=== PATIENT | female | born 1995 | race Caucasian/White ===

== ENCOUNTER 2022-02-23 08:10 | Emergency (ER) | payer BC ==
[2022-02-23] VITALS (10 sets, daily range): BP systolic 91–113; BP diastolic 45–74
[~2022-02-23] VITALS: Ht 167.6 cm; Wt 77.2 kg
[2022-02-23 08:33] LABS: HEMATOCRIT 43.1 % (37.0-47.0); HEMOGLOBIN 14.1 g/dl (12.0-16.0); IMMATURE GRANULOCYTES 0.3 % (0.0-5.0); MEAN CELL VOLUME 85.7 fL CALC (80.0-100.0); MEAN CORPUSCULAR HGB CONC 32.7 g/dL CAL (32.0-36.0); NEUT# 4.07 thou/uL (2.00-7.15); RED BLOOD COUNT 5.03 mill/uL (4.20-5.60); RED CELL DISTRI WIDTH 13.2 % (11.5-15.5)
[2022-02-23 08:35] LABS: URINE BILIRUBIN - DIPSTICK NEGATIVE (NEGATIVE); URINE BLOOD DIPSTICK TRACE-INTACT (NEGATIVE); URINE COLOR YELLOW; URINE GLUCOSE - DIPSTICK NEGATIVE (NEGATIVE); URINE KETONE NEGATIVE (NEGATIVE); URINE LEUK ESTERASE NEGATIVE (NEGATIVE); URINE PROTEIN - DIPSTICK NEGATIVE (NEG-TRACE); URINE SPECIFIC GRAVITY <=1.005; URINE UROBILINOGEN - DIPSTICK 0.2 E.U./dL (0.2)
[2022-02-23 08:49] LABS: URINE NITRITE - DIPSTICK NEGATIVE (Negative)
[2022-02-23 09:01] LABS: ALBUMIN 4.1 g/dL (3.2-5.0); ALKALINE PHOSPHATASE 51 u/l (38-126); ANION GAP 10 (6-22 (CALC)); BILIRUBIN, TOTAL 0.3 mg/dL (0.0-1.4); BUN 13 mg/dL (7-17); BUN/CREATININE RATIO 17 (12-20 (CALC)); CARBON DIOXIDE 28 mmol/l (22-30); CHLORIDE 106 mmol/l (95-108); CREATININE 0.8 mg/dL (0.5-1.0); GFR FOR AFR.AMER. > 60 ML/MIN (>=60 (CALC)); GFR OTHER RACES > 60 ML/MIN (>=60 (CALC)); LIPASE 121 u/l (23-300); POTASSIUM 4.1 mmol/l (3.5-5.1); SGOT/AST 19 u/l (14-36); SODIUM 139 mmol/l (137-146); TOTAL PROTEIN 7.3 g/dL (6.3-8.2)
[2022-02-23] MEDS ORDERED: MEDDOSEPAK PO (11:11)
[2022-02-23] MEDS ORDERED: ZOFRAN4 MG/TAB PO (11:11)
[2022-02-23] MEDS ORDERED: TORADOL PO (11:11)
== END 2022-02-23 12:35 | disposition home or self-care (01) | DRG 392 ==
LOC: ED 08:10
PROVIDERS: Family Medicine
DX: R10.84 Generalized abdominal pain (principal); Z87.19 Personal history of other diseases of the digestive system
CPT/HCPCS: Q9967

== ENCOUNTER 2023-01-01 09:54 | Emergency (ER) | payer BC ==
[~2023-01-01] VITALS: Ht 167.6 cm; Wt 88.4 kg
[~2023-01-01 09:54] MED LIST: MEDDOSEPAK PO; TORADOL PO; ZOFRAN4 MG/TAB PO
[2023-01-01 10:01] VITALS: BP 115/76
[2023-01-01 10:06] VITALS: BP 105/56
[2023-01-01 10:18] LABS: BASO% 0.4 % (0-3); EOS% 1.9 % (0-8); HEMATOCRIT 38.8 % (37.0-47.0); HEMOGLOBIN 12.8 g/dl (12.0-16.0); IMMATURE GRANULOCYTES 0.5 % (0.0-5.0); LYMPH% 24.3 % (15-41); MEAN CELL VOLUME 82.9 fL CALC (80.0-100.0); MEAN CORPUSCULAR HGB 27.4 pG CALC (26.0-32.0); MONO% 8.9 % (2-13); NEUT# 5.42 thou/uL (2.00-7.15); RED BLOOD COUNT 4.68 mill/uL (4.20-5.60); RED CELL DISTRI WIDTH 14.1 % (11.5-15.5)
[2023-01-01 10:28] LABS: ANION GAP 12 (6-22 (CALC)); BUN 10 mg/dL (7-17); BUN/CREATININE RATIO 12 (12-20 (CALC)); CARBON DIOXIDE 20 mmol/l (22-30); CHLORIDE 109 mmol/l (95-108); CREATININE 0.8 mg/dL (0.5-1.0); GFR FOR AFR.AMER. > 60 ML/MIN (>=60 (CALC)); GFR OTHER RACES > 60 ML/MIN (>=60 (CALC)); POTASSIUM 4.1 mmol/l (3.5-5.1); SODIUM 137 mmol/l (137-146)
[2023-01-01 11:11] VITALS: BP 107/67
[2023-01-01] MEDS ORDERED: GABAPENTIN300 M2 PO (12:07)
[2023-01-01] MEDS ORDERED: VOLTAREN1%GEL TOP (12:07)
[2023-01-01] MEDS ORDERED: HYDROCO/APAP1 T10 PO (12:07)
[2023-01-01] MEDS ORDERED: NAPROXEN500 MG PO (12:07)
[2023-01-01 12:18] VITALS: BP 107/67
[2023-01-01] MEDS ORDERED: HYDROCO/APAP1 TA9 PO (13:07)
== END 2023-01-01 12:45 | disposition home or self-care (01) | DRG 552 ==
LOC: ED 09:54
PROVIDERS: Family Medicine
DX: M54.50 Low back pain, unspecified (principal)
CPT/HCPCS: J1100